=== PATIENT | female | born 1955 | race Caucasian/White ===

== ENCOUNTER 2020-02-05 14:46 | Emergency (ER) | payer OTHER ==
[2020-02-05] MEDS ORDERED: MORPHINE 4 MG/ML SYR ONE (15:22)
[2020-02-05] MEDS ORDERED: DIAZEPAM 10 MG/2 ML INJ SYRINGE ONE (15:23)
[2020-02-05] MEDS ORDERED: ONDANSETRON 4 MG/2 ML VIAL ONE (15:23)
[2020-02-05] MEDS ORDERED: dexAMETHasone 10 MG/ML VIAL ONE (15:56)
[2020-02-05] MEDS ORDERED: KETOROLAC 30 MG/ML INJ ONE (15:57)
--- NOTE | 2020-02-05 16:02 | EDPHYS ---
Physician Documentation [facility] Name: Blanche Ordonez Age: 64 yrs Sex: Female : 1955 Arrival Date: 02/05/2020 Time: 14:47 Bed 23 Private MD: ED Physician Edwin Houston HPI: 02/04 15:23 This 64 yrs old Female presents to ER via Wheelchair with complaints of Back jmm Pain. 15:23 The patient presents with pain that is acute. Onset: The symptoms/episode jmm began/occurred acutely, 3 day(s) ago. The pain does not radiate. Associated signs and symptoms: Pertinent negatives: incontinence, numbness. Modifying factors: The patient symptoms are alleviated by nothing, the patient symptoms are aggravated by any movement. This is a 64 year old female with a history of chronic pain which presents to the ED with complaints of right lower back pain which occurred after bending over 3 days ago. Patient states the pain has intensified over the past 3 days. Denies numbness, denies urinary or bowel problems. . Historical: - Allergies: 15:07 No Known Allergies; vc - Home Meds: 15:07 Prednisone Oral [Active]; Claritin Oral [Active]; vc - PMHx: 15:07 Chronic pain; Hyperlipidemia; Rheumatoid Arthritis; vc - PSHx: 15:07 Hysterectomy; vc - Immunization history:: Adult Immunizations up to date, Pneumococcal vaccine is up to date, Flu vaccine is up to date. - Social history:: Smoking status: Patient/guardian denies using tobacco, but has a distant history of tobacco abuse. ROS: 15:23 Constitutional: Negative for fever, chills, and weight loss, Cardiovascular: Negative jmm for chest pain, palpitations, and edema, Respiratory: Negative for shortness of breath, cough, wheezing, and pleuritic chest pain. 15:23 Back: Positive for pain with movement. 15:23 All other systems are negative. Exam: 15:23 Constitutional: This is a well developed, well nourished patient who is awake, alert, jmm and in no acute distress. Head/Face: atraumatic. Eyes: EOMI, no conjunctival erythema appreciated ENT: Moist Mucus Membranes Neck: Trachea midline, Supple Chest/axilla: Normal chest wall appearance and motion. Cardiovascular: Regular rate and rhythm. No edema appreciated Respiratory: Normal respirations, no respiratory distress appreciated Abdomen/GI: Non distended, soft 15:23 Skin: General appearance color normal MS/ Extremity: Moves all extremities, no obvious deformities appreciated, no edema noted to the lower extremities 15:23 Back: pain, right lower lumbar muscle spasm appreciated, TTP. 15:23 Neuro: extensor hallucis longus intact. 15:23 Psych: Behavior/mood is pleasant, cooperative. Vital Signs: 15:01 BP 146 / 100; Pulse 88; Resp 20; Temp 97.8; Pulse Ox 97% on R/A; vc 15:08 Weight 102.06 kg; Height 5 ft. 7 in. (170.18 cm); Pain 10/10; vc 15:20 BP 144 / 85; Pulse 85; Resp 22; Pulse Ox 94% on R/A; vc 16:00 BP 134 / 80; Pulse 83; Resp 18; Pulse Ox 93% on R/A; vc 15:08 Body Mass Index 35.24 (102.06 kg, 170.18 cm) vc MDM: 15:10 Patient medically screened. [facility] 15:59 Data reviewed: vital signs, nurses notes. Counseling: I had a detailed discussion with nima the patient and/or guardian regarding: the historical points, exam findings, and any diagnostic results supporting the discharge/admit diagnosis, the need for outpatient follow up, to return to the emergency department if symptoms worsen or persist or if there are any questions or concerns that arise at home. ED course: Pain decreased in the ED. Pain most likely due to muscle spasm. I do not suspect cord compression or spinal abscess. No fever, no recent instrumentation, no midline tenderness. Extensor hallucis longus intact. Patient advised to follow up with pcp and otherwise given strict return precautions.. 16:08 ED course: RX history reviewed on [facility] site. . [facility] 02/04 15:15 Order name: Saline Lock; Complete Time: 15:38 [facility] Administered Medications: 15:20 Drug: morphine 4 mg {Note: RASS 3.} Route: IVP; Site: left antecubital; vc 16:02 Follow up: Response: No adverse reaction vc 15:23 Drug: Zofran (Ondansetron) 4 mg Route: IVP; Site: left antecubital; vc 16:01 Follow up: Response: No adverse reaction vc 15:25 Drug: Valium 5 mg Route: IVP; Site: left antecubital; vc 16:01 Follow up: Response: No adverse reaction vc 16:00 Drug: Ketorolac 15 mg Route: IVP; Site: left antecubital; vc 16:00 Follow up: Response: No adverse reaction vc 16:02 Drug: Decadron - Dexamethasone 10 mg Route: IVP; Site: left antecubital; vc 16:30 Follow up: Response: No adverse reaction vc Disposition: 02/05 07:14 Co-signature as Attending Physician, Edwin Houston MD I agree with the assessment and kdr plan of care. Disposition: 02/05/20 16:01 Discharged to Home. Impression: Muscle spasm of back. - Condition is Stable. - Discharge Instructions: Muscle Cramps and Spasms. - Prescriptions for Ultracet 37.5- 325 mg Oral Tablet - take 1 tablet by ORAL route every 6 hours - for up to 5 days; do not exceed 8 tablets per day.; 12 tablet. Zanaflex 4 mg Oral Tablet - take 1 tablet by ORAL route every 8 hours As needed; 20 tablet. - Medication Reconciliation Form, Thank You Letter, Antibiotic Education, Prescription Opioid Use form. - Follow up: Private Physician; When: 2 - 3 days; Reason: Recheck today's complaints, Continuance of care, Re-evaluation by your physician. Signatures: Edwin Houston MD MD [facility] Juan Reich PA PA jmm Calcote, Vanessa RN RN vc Corrections: (The following items were deleted from the chart) 02/04 16:41 16:01 02/05/2020 16:01 Discharged to Home. Impression: Muscle spasm of back. Condition vc is Stable. Forms are Medication Reconciliation Form, Thank You Letter, Antibiotic Education, Prescription Opioid Use. Follow up: Private Physician; When: 2 - 3 days; Reason: Recheck today's complaints, Continuance of care, Re-evaluation by your physician. nima
--- NOTE | 2020-02-05 16:02 | ER ---
Nurse's Notes [facility] Name: Blanche Ordonez Age: 64 yrs Sex: Female : 1955 Arrival Date: 02/05/2020 Time: 14:47 Bed 23 Private MD: Diagnosis: Muscle spasm of back Presentation: 02/04 15:01 Chief complaint: Patient states: "A FEW DAYS AGO I STARTED HAVING SEVERE BACK PAIN, MY vc BACK POPPED AND THE PAIN WENT AWAY. I WOKE UP TODAY AND MY BACK WAS ACHING, IT KEEPS GETTING WORSE AND WORSE.". Coronavirus screen: The patient has NOT traveled to a country currently being monitored by the [facility] within the last 14 days. Proceed with normal triage procedures. The patient has NOT had contact with any known and/or suspected case of coronavirus. Proceed with normal triage procedures. Ebola Screen: No symptoms or risks identified at this time. Initial Sepsis Screen: Does the patient meet any 2 criteria? No. Patient's initial sepsis screen is negative. Does the patient have a suspected source of infection? No. Patient's initial sepsis screen is negative. Risk Assessment: Do you want to hurt yourself or someone else? Patient reports no desire to harm self or others. 15:01 Method Of Arrival: Wheelchair vc 15:01 Acuity: ZAYNAB 3 vc 15:15 Onset of symptoms was February 05, 2020 at 08:00. vc Triage Assessment: 15:39 General: Appears in no apparent distress. uncomfortable, Behavior is agitated, anxious, vc crying, restless. Pain: Complains of pain in right mid back and right low back. Musculoskeletal: Circulation, motion, and sensation intact. Range of motion: intact in all extremities. Historical: - Allergies: 15:07 No Known Allergies; vc - Home Meds: 15:07 Prednisone Oral [Active]; Claritin Oral [Active]; vc - PMHx: 15:07 Chronic pain; Hyperlipidemia; Rheumatoid Arthritis; vc - PSHx: 15:07 Hysterectomy; vc - Immunization history:: Adult Immunizations up to date, Pneumococcal vaccine is up to date, Flu vaccine is up to date. - Social history:: Smoking status: Patient/guardian denies using tobacco, but has a distant history of tobacco abuse. Screenin:39 Abuse screen: Denies threats or abuse. Nutritional screening: No deficits noted. vc Tuberculosis screening: No symptoms or risk factors identified. Fall Risk None identified. Assessment: 15:15 General: Appears in no apparent distress. uncomfortable, Behavior is cooperative, vc agitated, anxious, crying. Pain: Complains of pain in right low back and right mid back Pain does not radiate. Pain currently is 10 out of 10 on a pain scale. Pain began gradually, Alleviated by nothing. Neuro: Level of Consciousness is awake, alert, obeys commands, Oriented to person, place, time, situation. Cardiovascular: Patient's skin is warm and dry. Respiratory: Respiratory effort is even, unlabored, Respiratory pattern is symmetrical, hyperventilation. GI: No signs and/or symptoms were reported involving the gastrointestinal system. : No signs and/or symptoms were reported regarding the genitourinary system. EENT: No signs and/or symptoms were reported regarding the EENT system. Derm: Skin temperature is warm. 16:04 Reassessment: Patient and/or family updated on plan of care and expected duration. Pain vc level reassessed. Patient states feeling better. Patient states symptoms have improved. Vital Signs: 15:01 BP 146 / 100; Pulse 88; Resp 20; Temp 97.8; Pulse Ox 97% on R/A; vc 15:08 Weight 102.06 kg; Height 5 ft. 7 in. (170.18 cm); Pain 10/10; vc 15:20 BP 144 / 85; Pulse 85; Resp 22; Pulse Ox 94% on R/A; vc 16:00 BP 134 / 80; Pulse 83; Resp 18; Pulse Ox 93% on R/A; vc 15:08 Body Mass Index 35.24 (102.06 kg, 170.18 cm) vc ED Course: 14:47 Patient arrived in ED. mr 15:00 Jigna Wilde RN is Primary Nurse. vc 15:02 Juan Reich PA is PHCP. [facility] 15:02 Edwin Houston MD is Attending Physician. [facility] 15:03 Triage completed. vc 15:15 Call light in reach. Pulse ox on. NIBP on. vc 15:41 Arm band placed on. vc 16:06 No provider procedures requiring assistance completed. vc 16:41 IV discontinued, intact, bleeding controlled, No redness/swelling at site. Pressure vc dressing applied. Administered Medications: 15:20 Drug: morphine 4 mg {Note: RASS 3.} Route: IVP; Site: left antecubital; vc 16:02 Follow up: Response: No adverse reaction vc 15:23 Drug: Zofran (Ondansetron) 4 mg Route: IVP; Site: left antecubital; vc 16:01 Follow up: Response: No adverse reaction vc 15:25 Drug: Valium 5 mg Route: IVP; Site: left antecubital; vc 16:01 Follow up: Response: No adverse reaction vc 16:00 Drug: Ketorolac 15 mg Route: IVP; Site: left antecubital; vc 16:00 Follow up: Response: No adverse reaction vc 16:02 Drug: Decadron - Dexamethasone 10 mg Route: IVP; Site: left antecubital; vc 16:30 Follow up: Response: No adverse reaction vc Outcome: 16:01 Discharge ordered by . nima 16:40 Discharged to home ambulatory, with family. vc 16:40 Condition: good 16:40 Discharge instructions given to patient, family, Instructed on discharge instructions, follow up and referral plans. no driving heavy equipment, medication usage, Demonstrated understanding of instructions, follow-up care, medications, Prescriptions given X 2. 16:41 Patient left the ED. vc Signatures: Juan Reich PA PA jmm Rivera, Mary mr Calcote, Vanessa, RN RN vc
[2020-02-05 16:52] VITALS: TEMP 97.8
[2020-02-05 16:57] VITALS: BP 134/80; O2SAT 93
== END 2020-02-05 16:41 | disposition home or self-care (01) ==
LOC: ER 14:46
DX: M62.830 Muscle spasm of back (principal); E78.5 Hyperlipidemia, unspecified
CPT/HCPCS: 96375; 96374; 99283; J3360; J1100; J2405